=== PATIENT | female | born 1985 | race Two or more races ===

== ENCOUNTER 2016-09-11 18:49 | Emergency (ER) | payer SELFPAY ==
[2016-09-11] MEDS ORDERED: ALBUTEROL/IPRATROPIUM 2.5/0.5 MG 3 ML/EACH DOSE ONE (19:26)
[2016-09-11] MEDS ORDERED: PREDNISONE 20 MG TABLET ONE (20:07)
[2016-09-11] MEDS ORDERED: ONDANSETRON 4 MG ODT TAB ONE (20:29)
[2016-09-11] MEDS ORDERED: ALBUTEROL NEB 2.5 MG/3 ML VIAL.NEB NEB ONE (20:46)
[2016-09-11] MEDS ORDERED: AZITHROMYCIN 250 MG TABLET ONE (20:58)
--- NOTE | 2016-09-12 09:20 | RAD ---
09/12/2016 9:15 AM CHEST - 2 VIEWS History: Shortness of breath starting night. Dizziness last night. Comparison: 01/17/2016 Findings: Two views of the chest are obtained. The lungs demonstrate linear platelike atelectasis or scar at the left mid to lower lung. This is similar to prior study. No new area of airspace disease is present. The cardiomediastinal silhouette is unremarkable.. The osseous structures are intact.. IMPRESSION: Stable examination without acute process..
== END 2016-09-11 21:17 | disposition home or self-care (01) ==
LOC: ED 18:49
DX: J45.901 Unspecified asthma with (acute) exacerbation (principal); R50.9 Fever, unspecified
CPT/HCPCS: 71020; 94640 ×2; 99283 ×2; J7512; A9270 ×2